=== PATIENT | female | born 1995 | race Caucasian/White ===

== ENCOUNTER 2016-10-27 06:30 | Inpatient (IN) | payer OTHER ==
[2016-10-27 06:59] VITALS: BMI 34.9
[2016-10-27] MEDS ORDERED: OXYTOCIN IN LR 500 ML IV ONE ×2 (07:56→08:19)
[2016-10-27] MEDS ORDERED: PENICILLIN G POTASSIUM 5 MMU in NS 0.9% (MINI-BAG PLUS) 100 ML IV ONE (07:57)
[2016-10-27] MEDS ORDERED: MINERAL OIL 25 ML BOT ONE (08:18)
[2016-10-27] MEDS ORDERED: IV START KIT ONE (08:18)
[2016-10-27] MEDS ORDERED: LIDOCAINE Viscous 2% 15 ML UDCUP ONE (08:18)
[2016-10-27] MEDS ORDERED: PUMP TUBING ONE (08:18)
[2016-10-27] MEDS ORDERED: LACTATED RINGERS 1,000 ML ONE (08:18)
[2016-10-27] MEDS ORDERED: LIDOCAINE 1% (PRES FREE) 30 ML VIAL ONE (08:18)
[2016-10-27] MEDS ORDERED: OXYTOCIN 10 UNITS/ML VIAL ONE (08:18)
[2016-10-27] MEDS ORDERED: PENICILLIN G POTASSIUM 5 MMU VIAL ONE (08:19)
[2016-10-27] MEDS ORDERED: NS 0.9% (MINI-BAG PLUS) 100 ML IV ONE (08:19)
[2016-10-27] MEDS: LACTATED RINGERS 1,000 ML IV SCH ×5 (08:55→22:14)
[2016-10-27 09:35] LABS: HEMATOCRIT 37.4 % (37.0-47.0); HEMOGLOBIN 12.5 gm/l (12.0-16.0); MEAN CELL VOLUME 95.4 fl (81.0-99.0); MEAN CORPUSCULAR HEMOGLOBIN 31.9 pg (27.0-31.0); MEAN CORPUSCULAR HGB CONC 33.4 g/dl (33.0-37.0); RED CELL DISTRIBUTION WIDTH 12.8 % (11.5-14.5)
[2016-10-27] MEDS ORDERED: PENICILLIN G 3 MIL UNIT PREMIX 50 ML IV ONE ×3 (12:46→20:30)
[2016-10-27] MEDS: PENICILLIN G 3 MIL UNIT PREMIX 3 MMU in Premix (D5W) 50 ml 1 EACH IV SCH ×3 (12:58→21:04)
[2016-10-27] MEDS: OXYTOCIN IN LR 500 ML IV PRN ×4 (13:32→18:17)
[2016-10-27] MEDS ORDERED: ALBUTEROL SULFATE MDI 60 PUFFS/INHALER IH PRN (13:32)
[2016-10-27] MEDS ORDERED: FENTANYL 100 MCG/2 ML VIAL IV PRN (17:47)
--- NOTE | 2016-10-27 19:53 | PCMAN ---
OB Admission Note - History : 1 Term: 0 : 0 Abortions (S&E): 0 Livin Gestational Age (weeks): 40 Days (#/7): 4 Admit Cervical Dilation:: 1.5 Admit Cervical Effacement (%):: 50 Admit Station:: -2 Admit Presentaton:: Vertex Membrane Status: Ruptured Rupture (Date): 10/27/16 Rupture (Time): 05:10 Membranes Comment:: clear Labor Onset (Date): 10/27/16 Labor Onset (Time): 14:00 Contractions: Yes Contraction Frequency:: 3-8 minutes Heart Rate:: 140 Status:: category 1 EFW:: 7.5 Summary of Course:: Uncomplicated. Dates by LMP, confirmed by US. Had a low lying placenta on 20 week US which resolved on FU US at 30 weeks. - Labs Blood Type: A (+) positive Hct/Hgb:: 37.4/12.5 Rubella Status: Immune GBS Status: Positive Abnormal Labs: None Other Labs:: 1 hr GTT 116 - Physical Exam General: Afebrile, Mild Distress Psych/Mental Status: Mood/Affect Appropriate Neurological: Grossly Intact, Alert, Oriented x 4, Normal Speech HEENT: Atraumatic, PERRLA, EOMI, Mucous membr. moist/pink Lungs: Clear to Auscultation Bilaterally Cardiovascular: Regular Rate and Rhythm, No Murmur Abdomen: Normal Bowel Sounds Genitourinary: Normal Female Genitalia, No Edema Rectal Exam: Deferred Extremities: Full ROM, Edema (trace at ankles) DTR: Patellar (L): 2+ (Brisk, Normal), Patellar (R): 2+ (Brisk, Normal) Skin: Normal Color, Warm, Dry, Intact, No Rash - Problems (1) Post term over 40 weeks Status: Acute Code: O48.0 Assessment/Plan: expect (2) SROM (spontaneous rupture of membranes) Status: Acute Code: [id number] Assessment/Plan: Irreg, mild ctx so will need Pitocin augmentation. (3) GBS (group B Streptococcus carrier), +RV culture, currently Status: Acute Code: O99.820 Assessment/Plan: PCN prophylaxis instituted.
[2016-10-27] MEDS: MONTELUKAST SODIUM 10 MG TABLET PO SCH (21:04)
[2016-10-27] MEDS ORDERED: EPIDURAL PUMP SET ONE (21:23)
[2016-10-27] MEDS ORDERED: FENTANYL/ROPIVACAINE EPIDURAL 250 ML EP ONE (21:24)
[2016-10-27] MEDS ORDERED: LACTATED RINGERS 500 ML IV PRN (21:45)
[2016-10-27] MEDS ORDERED: NALOXONE HCL 0.4 MG/ML VIAL IV PRN (21:45)
[2016-10-27] MEDS ORDERED: DIPHENHYDRAMINE HCL 50 MG/1 ML VIAL IV PRN (21:45)
[2016-10-27] MEDS ORDERED: EPHEDRINE SULFATE 50 MG/ML 1ML VIAL IV PRN (21:45)
[2016-10-27] MEDS ORDERED: ONDANSETRON 4 MG/2ML 2 ML VIAL IV PRN (21:45)
[2016-10-27] MEDS ORDERED: NALBUPHINE HCL 20 MG/ML AMP IV PRN (21:45)
[2016-10-27] MEDS ORDERED: METOCLOPRAMIDE HCL 5 MG/ML 2ML VIAL IV PRN (21:45)
[2016-10-27] MEDS ORDERED: LACTATED RINGERS 1,000 ML IV SCH (21:45)
[2016-10-27] MEDS ORDERED: SODIUM CHLORIDE 0.9% 500 ML IV PRN (21:45)
[2016-10-27] MEDS ORDERED: EPIDURAL PROCEDURE TRAY ONE (21:59)
[2016-10-28] MEDS ORDERED: PENICILLIN G 3 MIL UNIT PREMIX 50 ML IV ONE ×2 (01:53→06:28)
[2016-10-28] MEDS: LACTATED RINGERS 1,000 ML IV SCH ×2 (02:05→05:45)
[2016-10-28] MEDS: PENICILLIN G 3 MIL UNIT PREMIX 3 MMU in Premix (D5W) 50 ml 1 EACH IV SCH ×2 (02:06→07:07)
[2016-10-28] MEDS ORDERED: FENTANYL/ROPIVACAINE EPIDURAL 250 ML EP SCH (06:00)
--- NOTE | 2016-10-28 08:58 | PDOC36 ---
Provider Note Subject: S/ Back pain despite epidural, did not sleep much overnight. O/VSS Afebrile, FHT 130s, category 1 with 3 or 4 variable decels down to 70-90 in the last few hours. Now pushing on her back without distress. Ctx q 3- 4 min A/Stage 2 after prolonged stage 1 with SROM. Still afebrile P/Pushing, baby suspected OP. Bibiana Buchanan MD
[2016-10-28] MEDS ORDERED: PRENATAL VIT/FE FUMARATE/FA 1 TABLET PO SCH (09:00)
[2016-10-28] MEDS ORDERED: CALCIUM CARBONATE 500 MG TAB.CHEW PO ONE (10:10)
[2016-10-28] MEDS ORDERED: ACETAMINOPHEN 325 MG TABLET PO PRN (11:26)
[2016-10-28] MEDS ORDERED: BENZOCAINE/MENTHOL 60 APPLIC/BOT TP PRN (11:26)
[2016-10-28] MEDS ORDERED: LANOLIN 50 APPLIC/7G TUBE TP PRN (11:26)
[2016-10-28] MEDS ORDERED: OXYCODONE/ACETAMINOPHEN 5/325 MG TABLET PO PRN (11:26)
[2016-10-28] MEDS ORDERED: CALCIUM CARBONATE 500 MG TAB.CHEW PO PRN (11:26)
[2016-10-28] MEDS ORDERED: OXYMETAZOLINE HCL 0.05% 30 SPRAYS/BOT NS PRN (11:26)
[2016-10-28] MEDS ORDERED: DOCUSATE SODIUM 100 MG CAPSULE PO PRN (11:26)
[2016-10-28] MEDS ORDERED: OXYCODONE HCL 5 MG TABLET PO PRN (11:26)
--- NOTE | 2016-10-28 11:28 | PCMDEL ---
Delivery Note - Labor 1st stage (hr/min):: 16 hr/59 min 2nd stage (hr/min):: 2 hr/10 min 3rd stage (hr/min):: 4 min Total (hr/min):: 19 hr/13 min Pushed (hr/min):: 2 hr/10 min - Delivery Delivery (Date): 10/28/16 Delivery (Time): 10:19 Infant Gender: Female Presentation: Cephalic Position: OA Umbilical Cord: 3 Vessel Delayed Cord Clamping:: > 3 min 1 Minute Total: 9 5 Minute Total: 9 Placenta:: intact EBL:: 250 ml Perineum:: 2nd degree right vaginal into labia/perineum, 1st degree left vaginal Suture:: 2-0 chromic Anesthesia/Meds:: Epidural Length ROM:: 29 hr/ 9 min Comments:: Beautiful delivery of an asynclitic baby girl, no complications. Thick mec seen at delivery that had not been seen previously. Baby looked great at so bulb syringe and normal stimulation done. EBL 250 cc
[2016-10-28] MEDS: IBUPROFEN 800 MG TABLET PO PRN ×2 (12:20→20:47)
[2016-10-28] MEDS ORDERED: LIDOCAINE 1% (PRES FREE) 30 ML VIAL SUB-Q ONE (12:54)
[2016-10-28] MEDS ORDERED: PNEUMOCOCCAL 23-VAL P-SAC VAC 0.5 ML VIAL IM V ONE (17:13)
[2016-10-28] MEDS ORDERED: FLU VACC 2016-17 (36MO-64Y)/PF 60 MCG/0.5 ML SYRINGE IM V ONE (17:13)
[2016-10-28] MEDS: MONTELUKAST SODIUM 10 MG TABLET PO SCH (20:46)
[2016-10-29 07:35] LABS: HEMATOCRIT 29.5 % (37.0-47.0); HEMOGLOBIN 9.7 gm/l (12.0-16.0)
--- NOTE | 2016-10-29 07:42 | PDOC44 ---
- Subjective Day: 1 Reports Flatus, Reports Pain Tolerable, Reports , Reports Lochia Moderate, Reports Tolerating Regular Diet, Denies Nausea - Objective Temp Pulse Resp BP Pulse Ox 97.8 F 87 17 122/73 10/29/16 01:15 10/29/16 01:15 10/29/16 01:15 10/29/16 01:15 Lab Results 10/29/16 06:59 Hgb 9.7 L D Hct 29.5 L Current Medications Generic Name Dose Route Start Last Admin Trade Name Freq PRN Reason Stop Dose Admin Acetaminophen 325 - 650 mg 10/28/16 11:26 Tylenol PO Q4H PRN Pain (Mild) Albuterol Sulfate 1 puffs 10/27/16 13:32 Ventolin Hfa Mdi IH PRN PRN Wheezing or Dyspnea Benzocaine/Menthol 1 applic 10/28/16 11:26 Dermoplast TP PRN PRN Patient Comfort Calcium Carbonate/Glycine 500 - 1,000 mg 10/28/16 11:26 Tums PO BID PRN Indigestion Docusate Sodium 100 mg 10/28/16 11:26 Colace PO DAILY PRN Comfort Emollient Ointment 1 applic 10/28/16 11:26 [id number] TP PRN PRN sore nipples Ibuprofen 800 mg 10/28/16 11:26 10/28/16 20:47 Motrin PO 800 mg Q6H PRN Administration Pain (Mild) Montelukast Sodium 10 mg 10/27/16 21:00 10/28/16 20:46 Singulair PO 10 mg BEDTIME AMAURI Administration Multivi/Iron Carb/Fe Sulf/FA/Prenat 1 tab 10/28/16 09:00 10/28/16 12:54 Plus PO 1 tab DAILY AMAURI Administration Oxycodone HCl 5 - 10 mg 10/28/16 11:26 Roxicodone PO Q3H PRN Pain (Severe) Oxycodone/Acetaminophen 1 - 2 tab 10/28/16 11:26 Percocet 5/325 PO Q4H PRN Pain (Moderate) Oxymetazoline HCl 2 sprays 10/28/16 11:26 Afrin Nasal [place] NS BID PRN Congestion Sodium Chloride 10 ml 10/27/16 09:00 10/28/16 12:27 Normal Saline 10ml Flush IV 10 ml Q8HR AMAURI Administration Sodium Chloride 10 ml 10/28/16 11:26 Normal Saline 10ml Flush IV PRN PRN IV Flush - Physical Exam General: Afebrile, No Acute Distress Psych/Mental Status: Mood/Affect Appropriate, Judgment/Insight Intact, Bonding Well Neurological: Grossly Intact, Alert, Oriented x 4, Normal Speech HEENT: Atraumatic, PERRLA, EOMI, Mucous membr. moist/pink Lungs: Clear to Auscultation Bilaterally Cardiovascular: Regular Rate and Rhythm, No Murmur Breast: Soft, Skin intact, Nipples Intact, No Nipples Cracked Fundus: Firm, Midline, At Umbilicus Abdomen: Normal Bowel Sounds Genitourinary: Normal Female Genitalia, Edema (improved from yesterday) Lochia: Moderate Extremities: Full ROM, Edema (1+), No Tenderness Skin: Normal Color, Warm, Dry, Intact, No Rash Wound WE[employer]: Dressing Clean/Dry/Intact, Well Approximated (labial sutures intact) - Problems:Assessment/Plan (1) Normal spontaneous vaginal delivery Status: Acute Assessment/Plan: stable, continue post care, consider discharge later today if going well. Patient would like to go home if possible. (2) Perineal laceration involving fourchette Status: Acute Assessment/Plan: Healing well but still fairly swollen, continue ice, Ibuprofen (3) Anemia due to blood loss, acute Status: Acute Assessment/Plan: Not severe, will hold on Iron since her perineum is still swollen. Will continue vitamins. Disposition: Stable, Anticipate DC to Home
[2016-10-29] MEDS: IBUPROFEN 800 MG TABLET PO PRN (12:37)
--- NOTE | 2016-10-29 21:31 | PDOC39B ---
Hospital Course: ADMIT DATE: 10/27/16 DISCHARGE DATE: 10/29/16 ADMISSION DIAGNOSES: Post term , GBS positive PROCEDURES: Spontaneous Vaginal Delivery, Vaginal/perineal laceration at forchette repair HISTORY OF PRESENT ILLNESS: 21 year old G1 T0 L0 at 41 weeks 5 days presenting with SROM and irreg ctx. She required Pitocin augmentation. She received adequate GBS prophylaxis with PCN. She slowly progressed due to baby' s position but eventually reached complete dilation and delivered vaginally. HOSPITAL COURSE: The patient had an uncomplicated post course. By day of discharge the patient is ambulating, eating, voiding, and passing flatus without difficulty. Pain is controlled and lochia is appropriate. She is [] - Physical Exam Vital Signs: Temp Pulse Resp BP Pulse Ox 97.0 F 85 18 125/79 10/29/16 14:29 10/29/16 14:29 10/29/16 14:29 10/29/16 14:29 General: Afebrile, No Acute Distress Psych/Mental Status: Mood/Affect Appropriate, Bonding Well Neurological: Grossly Intact, Alert, Oriented x 4, Normal Gait, Normal Speech, Normal Reflexes, Cranial Nerves 3-12 Intact HEENT: Atraumatic, PERRLA, EOMI, Mucous membr. moist/pink Lungs: Clear to Auscultation Bilaterally Cardiovascular: Regular Rate and Rhythm, No Murmur Breast: Soft, Skin intact, Nipples Intact, No Nipples Cracked Fundus: Firm, Midline, Below Umbilicus Abdomen: Normal Bowel Sounds Genitourinary: Normal Female Genitalia, Edema (improved) Lochia: Light Extremities: Full ROM, No Edema Deep Tendon Reflexes: Patellar (L): 2+ (Brisk, Normal), Patellar (R): 2+ (Brisk , Normal) Skin: Normal Color, Warm, Dry, Intact, No Rash Wound: Dressing Clean/Dry/Intact, Well Approximated - Discharge Diagnosis (1) Normal spontaneous vaginal delivery Status: Acute Assessment/Plan: stable, discharge home, has been stable today and desires discharge. (2) Perineal laceration involving fourchette Status: Acute Assessment/Plan: Healing well but still fairly swollen, continue ice, Ibuprofen at home. (3) Anemia due to blood loss, acute Status: Acute Assessment/Plan: Not severe, will hold on Iron since her perineum is still swollen. Will continue vitamins at home. - Discharge Plan Condition: Good Disposition: Home Instruction Forms: Vaginal Discharge Instructions Prescriptions: Ibuprofen [IBUPROFEN 800 MG TABLET (SHF)] 800 mg PO Q6H PRN #30 tablet PRN Reason: Pain (Mild) Cholecalciferol (Vitamin D3) [Vitamin D3] 5,000 units PO DAILY #100 capsule Follow-Up: Elli Buchanan MD [Primary Care Provider] - In 6 weeks
[2016-10-29 22:14] VITALS: BP 118/62
== END 2016-10-29 21:16 | disposition home or self-care (01) | DRG 775 ==
LOC: FBC 06:30 → FBCOUT 06:30 → FBC 08:00
PROVIDERS: ADMIT Family Medicine; ATTEND Family Medicine
PROC: 10E0XZZ Delivery of Products of Conception, External Approach (ICD-10-PCS; principal; 2016-10-28)
PROC: 0KQM0ZZ Repair Perineum Muscle, Open Approach (ICD-10-PCS; 2016-10-28)
DX: O48.0 Post-term pregnancy (principal); D62 Acute posthemorrhagic anemia; O99.824 Streptococcus B carrier state complicating childbirth; O70.1 Second degree perineal laceration during delivery; O77.0 Labor and delivery complicated by meconium in amniotic fluid; O99.02 Anemia complicating childbirth; Z3A.40 40 weeks gestation of pregnancy; Z37.0 Single live birth